=== PATIENT | female | born 1990 ===

== ENCOUNTER 2021-11-08 13:57 | Outpatient (CLI) | payer OTHER | END 2021-11-08 14:45 | disposition home or self-care (01) | LOC: PRENATAL 13:57 | PROVIDERS: ATTEND Obstetrics & Gynecology Maternal & Fetal Medicine | DX: Z36.0 Encounter for antenatal screening for chromosomal anomalies (principal) ==

== ENCOUNTER 2021-12-04 15:14 | Outpatient (CLI) | payer OTHER | END 2021-12-04 16:43 | disposition home or self-care (01) | LOC: PRENATAL 15:14 | PROVIDERS: ATTEND Obstetrics & Gynecology Maternal & Fetal Medicine | DX: O35.0XX0 Maternal care for (suspected) central nervous system malformation in fetus, not applicable or unspecified (principal); O35.3XX0 Maternal care for (suspected) damage to fetus from viral disease in mother, not applicable or unspecified; Z3A.19 19 weeks gestation of pregnancy ==

== ENCOUNTER 2022-02-12 15:07 | Outpatient (CLI) | payer OTHER ==
[2022-02-12] MEDS ORDERED: FOLIC ACID1 MG PO (15:31)
[2022-02-12] MEDS ORDERED: IRON18 MG PO (15:31)
[2022-02-12] MEDS ORDERED: VITAMIN B-650 M1 PO (15:32)
== END 2022-02-13 13:05 | disposition home or self-care (01) ==
LOC: OBS/DEL 15:07
PROVIDERS: ATTEND Obstetrics & Gynecology
DX: O47.03 False labor before 37 completed weeks of gestation, third trimester (principal); Z3A.30 30 weeks gestation of pregnancy

== ENCOUNTER 2022-03-25 09:37 | Outpatient (CLI) | payer OTHER ==
[~2022-03-25 09:37] MED LIST: FOLIC ACID1 MG PO; IRON18 MG PO; VITAMIN B-650 M1 PO
== END 2022-03-25 10:55 | disposition home or self-care (01) ==
LOC: PRENATAL 09:37
PROVIDERS: ATTEND Obstetrics & Gynecology Maternal & Fetal Medicine
DX: O26.849 Uterine size-date discrepancy, unspecified trimester (principal); O35.0XX0 Maternal care for (suspected) central nervous system malformation in fetus, not applicable or unspecified; O36.8199 Decreased fetal movements, unspecified trimester, other fetus; Z14.8 Genetic carrier of other disease; Z3A.35 35 weeks gestation of pregnancy

== ENCOUNTER 2022-04-15 11:48 | Inpatient (IN) | payer OTHER ==
[~2022-04-15] VITALS: Ht 167.6 cm; Wt 66.7 kg
== END 2022-04-26 12:56 | disposition home or self-care (01) | DRG 807 ==
LOC: OB/GYN 04-24 02:25 → LDR 04-24 02:25 → OB/GYN 04-24 08:46
PROVIDERS: ADMIT Obstetrics & Gynecology; ATTEND Obstetrics & Gynecology
PROC: 10E0XZZ Delivery of Products of Conception, External Approach (ICD-10-PCS; principal; 2022-04-24)
PROC: 0W8NXZZ Division of Female Perineum, External Approach (ICD-10-PCS; 2022-04-24)
PROC: 4A1HXCZ Monitoring of Products of Conception, Cardiac Rate, External Approach (ICD-10-PCS; 2022-04-24)
DX: O80 Encounter for full-term uncomplicated delivery (principal); Z37.0 Single live birth; Z3A.40 40 weeks gestation of pregnancy; Z20.822 Contact with and (suspected) exposure to COVID-19